=== PATIENT | male | born 1940 | race Caucasian/White ===

== ENCOUNTER 2019-06-08 20:23 | Emergency (ER) | payer MEDICARE, BC ==
[2019-06-08 20:31] VITALS: RESP 20
--- NOTE | 2019-06-08 21:23 | XR ---
EXAMINATION TYPE: XR chest 2V DATE OF EXAM: 06/08/2019 COMPARISON: None INDICATION: Cough TECHNIQUE: Frontal and lateral views of the chest are obtained. FINDINGS: The heart size is normal. The pulmonary vasculature is normal. Some linear opacities at the left base likely related to some plate atelectasis.. Port is present on the right with the tip in superior vena cava region. IMPRESSION: 1. Plate atelectasis left lung base.
[2019-06-08] MEDS ORDERED: BENZONATATE 100 MG CAP PO STA (21:48)
[2019-06-08] MEDS ORDERED: AZITHROMYCIN 500 MG TAB PO STA (21:48)
[2019-06-08] MEDS ORDERED: ACET/COD 120MG/12MG LIQ 5ML CUP PO ONE (21:48)
[2019-06-08] MEDS ORDERED: IPRATROPIUM-ALBUTEROL 3 ML NEB INHALATION STA (21:49)
--- NOTE | 2019-06-08 21:53 | ED ---
URI HPI - General Chief Complaint: Upper Respiratory Infection Stated Complaint: Cold Time Seen by Provider: 06/08/19 20:33 Source: patient, RN notes reviewed, old records reviewed Mode of arrival: ambulatory Limitations: no limitations - History of Present Illness Initial Comments: This is a 78-year-old male the ER today. Patient does say for evaluation regards to cough. Patient states that an nagging cough for 4 days. No shortness of breath no pain. No fevers. Patient is up. On vacation from [place]. Otherwise feels fine. The cough has been persistent and productive, mild discoloration. No recent history of pneumonia. No other significant symptoms patient states he just feels like he has a cold. No new medications MD Complaint: cough -: days(s) (5) Severity: mild Severity scale (1-10): 2 Consistency: intermittent Worsens With: nothing Context: recent travel Associated Symptoms: cough Treatments Prior to Arrival: none - Related Data Home Medications Medication Instructions Recorded Confirmed Ascorbic Acid [Vitamin C] 500 mg PO DAILY 06/08/19 06/08/19 Cholecalciferol [Vitamin D3 (25 1,000 unit PO DAILY 06/08/19 06/08/19 Mcg = 1000 Iu)] Multivitamins, Thera [Multivitamin 1 tab PO DAILY 06/08/19 06/08/19 (formulary)] Allergies Allergy/AdvReac Type Severity Reaction Status Date / Time No Known Allergies Allergy Verified 06/08/19 20:37 Review of Systems ROS Statement: Those systems with pertinent positive or pertinent negative responses have been documented in the HPI. ROS Other: All systems not noted in ROS Statement are negative. Past Medical History Past Medical History: No Reported History Additional Past Medical History / Comment(s): lymphoma History of Any Multi-Drug Resistant Organisms: None Reported Past Surgical History: Joint Replacement, Orthopedic Surgery Past Psychological History: No Psychological Hx Reported Smoking Status: Never smoker Past Alcohol Use History: Occasional Past Drug Use History: None Reported General Exam Limitations: no limitations General appearance: alert, in no apparent distress Head exam: Present: atraumatic, normocephalic, normal inspection Eye exam: Present: normal appearance, EOMI. Absent: scleral icterus, conjunctival injection, periorbital swelling ENT exam: Present: normal exam, mucous membranes moist Neck exam: Present: normal inspection. Absent: tenderness, meningismus, lymphadenopathy Respiratory exam: Present: normal lung sounds bilaterally. Absent: respiratory distress, wheezes, rales, rhonchi, stridor Cardiovascular Exam: Present: regular rate, normal rhythm, normal heart sounds. Absent: systolic murmur, diastolic murmur, rubs, gallop, clicks GI/Abdominal exam: Present: soft, normal bowel sounds. Absent: distended, tenderness, guarding, rebound, rigid Extremities exam: Present: normal inspection, full ROM, normal capillary refill. Absent: tenderness, pedal edema, joint swelling, calf tenderness Back exam: Present: normal inspection Neurological exam: Present: alert, oriented X3, CN II-XII intact Psychiatric exam: Present: normal affect, normal mood Skin exam: Present: warm, dry, intact, normal color. Absent: rash Course Vital Signs 06/08/19 20:27 Temperature 98.7 F Pulse Rate 74 Respiratory 20 Rate Blood Pressure 122/76 O2 Sat by Pulse 96 Oximetry - Reevaluation(s) Reevaluation #1: 06/08/19 21:50 Medical records reviewed Reevaluation #2: 06/08/19 21:51 Patient's in no acute distress no shortness of breath Medical Decision Making - Medical Decision Making 78 male the ER with upper respiratory infection cough. Patient no acute distress, will be given cough medication and discharged - Radiology Data Radiology results: report reviewed (Chest x-rays negative for significant acute disease, plate atelectasis left base.), image reviewed Disposition Clinical Impression: Common cold, Upper respiratory tract infection, Bronchitis Disposition: HOME SELF-CARE Condition: Good Instructions (If sedation given, give patient instructions): Acute Bronchitis (ED) Is patient prescribed a controlled substance at d/c from ED?: No Referrals: Nonstaff,Physician [Primary Care Provider] - 1-2 days
[2019-06-08 22:19] VITALS: BP 132/74; PULSE 84; TEMP 98.4
== END 2019-06-08 22:19 | disposition home or self-care (01) ==
LOC: EC 20:23
DX: J40 Bronchitis, not specified as acute or chronic (principal); J06.9 Acute upper respiratory infection, unspecified; Z85.72 Personal history of non-Hodgkin lymphomas
CPT/HCPCS: 71046; 94640; 99284